=== PATIENT | female | born 1980 | race Caucasian/White ===

== ENCOUNTER 2021-01-12 23:28 | Observation (INO) | payer MEDICARE, MEDICAID ==
[2021-01-13 00:41] VITALS: BMI 23.3
[2021-01-13] MEDS ORDERED: Acetaminophen 650 MG Suppository PR PRN (04:29)
[2021-01-13] MEDS ORDERED: Ondansetron PF 4 MG/2 ML Vial IVP PRN (04:29)
[2021-01-13] MEDS ORDERED: Acetaminophen 325 MG TAB PO PRN (04:29)
[2021-01-13] MEDS: Morphine 4 MG/ML VIAL SLOW IVP PRN ×2 (04:34→09:11)
[2021-01-13] MEDS: Ondansetron ODT 4 MG TAB PO PRN ×2 (06:06→19:53)
[2021-01-13] MEDS: Piperacillin/Tazobactam 3.375 GM in Sodium Chloride 0.9% 100 ML IVPB SCH ×3 (06:06→21:32)
[2021-01-13 06:10] LABS: #Basophils 0.1 thou/uL (0.0-0.2); #Eosinphils 0.2 thou/uL (0.0-0.7); #Lymphocytes 2.4 thou/uL (1.20-3.40); #Monocytes 1.2 thou/uL (0.11-0.59); #Neutrophils 11.6 thou/uL (1.40-6.50); %Basophils 0.5 % (0.0-1.0); %Eosinophils 1.3 % (0.0-10.0); %Lymphocytes 15.5 % (21.0-51.0); %Monocytes 7.7 % (0.0-10.0); %Neutrophils 75.1 % (42.0-75.0); Hemoglobin 13.5 g/dL (12.0-16.0); Mean Corpuscular HGB CONC 32.7 g/dL (32.0-36.0); Mean Corpuscular Hemoglobin 32.4 pg (27.0-31.0); Mean Corpuscular Volume 99.1 fL (78.0-98.0); Mean Platelet Volume 7.6 fL (7.4-10.4); Platelet Count 349 thou/uL (130-400); RBC Distribution Width 12.7 % (11.5-14.5); Red Blood Cell (RBC) Count 4.17 mill/uL (4.20-5.40); White Blood Cell (WBC) Count 15.5 thou/uL (4.8-10.8)
[2021-01-13 06:31] LABS: ALT (SGPT) 21 U/L (8-55); AST (SGOT) 22 U/L (5-34); Albumin 3.2 g/dL (3.5-5.0); Alkaline Phosphatase 105 U/L (40-110); Anion Gap 15 mmol/L (10-20); BUN (Urea Nitrogen) 12 mg/dL (7.0-18.7); Bilirubin, Total 0.6 mg/dL (0.2-1.2); Calc. Creatinine Clearance 124 mL/min (70-130); Calcium 8.1 mg/dL (7.8-10.44); Carbon Dioxide 17 mmol/L (22-29); Chloride 111 mmol/L (98-107); Globulin 2.3 g/dL (2.4-3.5); Glucose 90 mg/dL (70-105); Potassium 3.7 mmol/L (3.5-5.1); Protein, Total 5.5 g/dL (6.0-8.3); Sodium 139 mmol/L (136-145)
[2021-01-13 06:32] LABS: Troponin I Less than 0.010 ng/mL (< 0.028)
[2021-01-13] MEDS: guaiFENesin ER 600 MG TAB PO SCH ×2 (09:09→19:53)
[2021-01-13] MEDS: traMADol HCl 50 MG TAB PO PRN ×2 (16:54→21:38)
[2021-01-13] MEDS ORDERED: Morphine 4 MG/ML VIAL SLOW IVP PRN ×2 (22:32→22:40)
[2021-01-14 05:26] LABS: #Basophils 0.1 thou/uL (0.0-0.2); #Eosinphils 0.5 thou/uL (0.0-0.7); #Lymphocytes 2.4 thou/uL (1.20-3.40); #Neutrophils 7.3 thou/uL (1.40-6.50); %Basophils 1.1 % (0.0-1.0); %Eosinophils 4.4 % (0.0-10.0); %Lymphocytes 21.1 % (21.0-51.0); %Monocytes 8.6 % (0.0-10.0); %Neutrophils 64.7 % (42.0-75.0); Hemoglobin 13.4 g/dL (12.0-16.0); Mean Corpuscular HGB CONC 34.2 g/dL (32.0-36.0); Mean Corpuscular Hemoglobin 33.5 pg (27.0-31.0); Mean Corpuscular Volume 97.8 fL (78.0-98.0); Mean Platelet Volume 7.3 fL (7.4-10.4); Platelet Count 371 thou/uL (130-400); RBC Distribution Width 12.5 % (11.5-14.5); Red Blood Cell (RBC) Count 4.01 mill/uL (4.20-5.40); White Blood Cell (WBC) Count 11.3 thou/uL (4.8-10.8)
[2021-01-14] MEDS: Piperacillin/Tazobactam 3.375 GM in Sodium Chloride 0.9% 100 ML IVPB SCH (05:26)
[2021-01-14] MEDS: traMADol HCl 50 MG TAB PO PRN (05:27)
[2021-01-14 05:55] LABS: Anion Gap 12 mmol/L (10-20); BUN (Urea Nitrogen) 8 mg/dL (7.0-18.7); Calc. Creatinine Clearance 139 mL/min (70-130); Calcium 8.3 mg/dL (7.8-10.44); Carbon Dioxide 22 mmol/L (22-29); Chloride 108 mmol/L (98-107); Glucose 92 mg/dL (70-105); Potassium 3.9 mmol/L (3.5-5.1); Sodium 138 mmol/L (136-145)
[2021-01-14] MEDS ORDERED: HYDROcodone/Acetaminophen 10/325 mg Tablet PO PRN (06:55)
[2021-01-14] MEDS ORDERED: PROTEASE PO SCH (09:00)
[2021-01-14] MEDS ORDERED: LIPASE PO SCH (09:00)
[2021-01-14] MEDS ORDERED: AMYLASE PO SCH (09:00)
[2021-01-14] MEDS: guaiFENesin ER 600 MG TAB PO SCH (09:41)
[2021-01-14 11:33] VITALS: BP 113/67; TEMP 98.1
[2021-01-14] MEDS ORDERED: traZODone HCl 50 MG TAB PO SCH (21:00)
[2021-01-15] MEDS ORDERED: Levothyroxine Sodium 125 MCG TAB PO SCH (06:00)
== END 2021-01-14 14:16 | disposition home or self-care (01) ==
LOC: 2SW 01-13 00:30
PROVIDERS: ADMIT Student in an Organized Health Care Education/Training Program; ATTEND Internal Medicine
DX: K52.9 Noninfective gastroenteritis and colitis, unspecified (principal); R00.0 Tachycardia, unspecified; E84.9 Cystic fibrosis, unspecified; J20.9 Acute bronchitis, unspecified; E03.9 Hypothyroidism, unspecified; K86.81 Exocrine pancreatic insufficiency; F17.210 Nicotine dependence, cigarettes, uncomplicated; R05.9 Cough, unspecified; Z79.899 Other long term (current) drug therapy; Z88.1 Allergy status to other antibiotic agents; Z93.1 Gastrostomy status
CPT/HCPCS: 71045; 80048; 80053; 83630; 84484; 85025 ×2; 87045; 87046; 87324; 87427 ×2; 87449 ×2; 87798 ×2; 96374; 96375; 96376 ×2; G0378 ×2; 36415; 87081; J2270; J2543; J3490; Q0162

== ENCOUNTER 2021-09-19 16:31 | Inpatient (IN) | payer MEDICARE, MEDICAID ==
[2021-09-19] MEDS ORDERED: Acetaminophen 650 MG Suppository PR PRN (18:06)
[2021-09-19] MEDS ORDERED: Acetaminophen 325 MG TAB PO PRN (18:06)
[2021-09-19] MEDS: Sodium Chloride 0.9% 1,000 ML IV SCH (18:27)
[2021-09-19] MEDS ORDERED: Morphine 2 MG/ML VIAL SLOW IVP SCH (18:30)
[2021-09-19] MEDS ORDERED: Piperacillin/Tazobactam 3.375 GM in Sodium Chloride 0.9% 100 ML IVPB SCH (18:30)
[2021-09-19 19:29] LABS: Anion Gap 11 mmol/L (10-20); BUN (Urea Nitrogen) 10 mg/dL (7.0-18.7); Calc. Creatinine Clearance 137 mL/min (70-130); Calcium 8.4 mg/dL (7.8-10.44); Carbon Dioxide 21 mmol/L (22-29); Chloride 112 mmol/L (98-107); Estimated GFR 120; Glucose 112 mg/dL (70-105); Potassium 4.1 mmol/L (3.5-5.1); Sodium 140 mmol/L (136-145)
[2021-09-19] MEDS: Piperacillin/Tazobactam 3.375 GM in Sodium Chloride 0.9% 100 ML IVPB SCH (21:07)
[2021-09-19] MEDS: Ketorolac Tromethamine 30 MG/ML VIAL IVP PRN (21:13)
[2021-09-19] MEDS: Ondansetron ODT 4 MG TAB PO PRN (21:13)
[2021-09-20] MEDS: Metoclopramide HCl 10 MG/2 ML VIAL IVP PRN ×3 (02:37→23:00)
[2021-09-20] MEDS: traMADol HCl 50 MG TAB PO PRN ×4 (02:37→23:01)
[2021-09-20] MEDS: Piperacillin/Tazobactam 3.375 GM in Sodium Chloride 0.9% 100 ML IVPB SCH ×3 (05:20→21:51)
[2021-09-20] MEDS: Ondansetron ODT 4 MG TAB PO PRN (05:34)
[2021-09-20 05:42] LABS: #Basophils 0.1 thou/uL (0.0-0.2); #Eosinphils 0.3 thou/uL (0.0-0.7); #Lymphocytes 2.5 thou/uL (1.20-3.40); #Monocytes 1.5 thou/uL (0.11-0.59); #Neutrophils 13.2 thou/uL (1.40-6.50); %Basophils 0.4 % (0.0-1.0); %Eosinophils 1.6 % (0.0-10.0); %Lymphocytes 14.2 % (21.0-51.0); %Monocytes 8.7 % (0.0-10.0); %Neutrophils 75.2 % (42.0-75.0); Hemoglobin 12.7 g/dL (12.0-16.0); Mean Corpuscular HGB CONC 32.7 g/dL (32.0-36.0); Mean Corpuscular Hemoglobin 31.7 pg (27.0-31.0); Mean Corpuscular Volume 96.8 fL (78.0-98.0); Platelet Count 333 thou/uL (130-400); Red Blood Cell (RBC) Count 4.01 mill/uL (4.20-5.40); White Blood Cell (WBC) Count 17.5 thou/uL (4.8-10.8)
[2021-09-20 06:02] LABS: Anion Gap 11 mmol/L (10-20); BUN (Urea Nitrogen) 12 mg/dL (7.0-18.7); Calc. Creatinine Clearance 123 mL/min (70-130); Calcium 8.2 mg/dL (7.8-10.44); Carbon Dioxide 21 mmol/L (22-29); Chloride 111 mmol/L (98-107); Estimated GFR 120; Glucose 106 mg/dL (70-105); Potassium 3.4 mmol/L (3.5-5.1); Sodium 140 mmol/L (136-145)
[2021-09-20] MEDS: Sodium Chloride 0.9% 1,000 ML IV SCH ×2 (08:26→20:13)
[2021-09-20] MEDS ORDERED: Potassium Chloride 20 MEQ TAB PO SCH ×2 (09:00→16:30)
[2021-09-20 11:56] VITALS: BMI 22.2
[2021-09-20] MEDS: Ondansetron PF 4 MG/2 ML Vial IVP PRN ×2 (12:29→19:55)
[2021-09-20] MEDS: Ketorolac Tromethamine 30 MG/ML VIAL IVP PRN ×2 (12:29→19:55)
[2021-09-20] MEDS ORDERED: diphenhydrAMINE 25 MG CAP PO PRN (16:17)
[2021-09-20] MEDS ORDERED: Morphine 2 MG/ML VIAL SLOW IVP PRN (17:40)
[2021-09-20] MEDS ORDERED: hydrALAZINE 20 MG/ML VIAL SLOW IVP PRN (17:44)
[2021-09-20] MEDS ORDERED: Simethicone Chewable 80 MG TAB PO SCH (19:57)
[2021-09-20] MEDS ORDERED: traZODone HCl 50 MG TAB PO PRN ×2 (21:40→21:41)
[2021-09-20] MEDS ORDERED: HYDROcodone/Acetaminophen 5/325 mg Tablet PO SCH (23:39)
[2021-09-21] MEDS: Piperacillin/Tazobactam 3.375 GM in Sodium Chloride 0.9% 100 ML IVPB SCH (05:16)
[2021-09-21 05:52] LABS: #Basophils 0.1 thou/uL (0.0-0.2); #Eosinphils 0.2 thou/uL (0.0-0.7); #Lymphocytes 2.4 thou/uL (1.20-3.40); #Neutrophils 8.9 thou/uL (1.40-6.50); %Basophils 0.8 % (0.0-1.0); %Eosinophils 1.5 % (0.0-10.0); %Lymphocytes 19.3 % (21.0-51.0); %Monocytes 7.9 % (0.0-10.0); %Neutrophils 70.5 % (42.0-75.0); Mean Corpuscular HGB CONC 31.9 g/dL (32.0-36.0); Mean Corpuscular Hemoglobin 31.3 pg (27.0-31.0); Mean Corpuscular Volume 98.2 fL (78.0-98.0); Mean Platelet Volume 8.3 fL (7.4-10.4); Platelet Count 330 thou/uL (130-400); Red Blood Cell (RBC) Count 3.84 mill/uL (4.20-5.40); White Blood Cell (WBC) Count 12.6 thou/uL (4.8-10.8)
[2021-09-21 06:36] LABS: Anion Gap 11 mmol/L (10-20); BUN (Urea Nitrogen) 10 mg/dL (7.0-18.7); Calc. Creatinine Clearance 130 mL/min (70-130); Calcium 8.1 mg/dL (7.8-10.44); Carbon Dioxide 22 mmol/L (22-29); Chloride 111 mmol/L (98-107); Estimated GFR 121; Glucose 107 mg/dL (70-105); Potassium 3.9 mmol/L (3.5-5.1); Sodium 140 mmol/L (136-145)
[2021-09-21] MEDS ORDERED: Simethicone Chewable 80 MG TAB PO SCH (10:45)
[2021-09-21 12:05] VITALS: BP 144/77; TEMP 98.3
[2021-09-21 12:22] LABS: Campy jejuni + coli by PCR Negative (Negative); STEC Shiga Toxin 1+2 Negative (Negative); Salmonella spp. by PCR Negative (Negative); Shigella spp + EIEC by PCR Negative (Negative)
[2021-09-21] MEDS: Sodium Chloride 0.9% 1,000 ML IV SCH (13:02)
== END 2021-09-21 12:55 | disposition home or self-care (01) | DRG 872 ==
LOC: T4-A 16:46 → OBSVTOIN 09-20 16:18
PROVIDERS: ADMIT Internal Medicine; ATTEND Internal Medicine
DX: A41.9 Sepsis, unspecified organism (principal); E84.9 Cystic fibrosis, unspecified; K51.00 Ulcerative (chronic) pancolitis without complications; F11.20 Opioid dependence, uncomplicated; Z20.822 Contact with and (suspected) exposure to COVID-19; F17.290 Nicotine dependence, other tobacco product, uncomplicated; E03.9 Hypothyroidism, unspecified; F17.210 Nicotine dependence, cigarettes, uncomplicated; F12.10 Cannabis abuse, uncomplicated; E87.6 Hypokalemia; Z88.1 Allergy status to other antibiotic agents; Z79.899 Other long term (current) drug therapy; Z79.52 Long term (current) use of systemic steroids; Z79.890 Hormone replacement therapy; Z98.51 Tubal ligation status; Z93.1 Gastrostomy status
CPT/HCPCS: 36415; 80048; 83630; 84443; 85025; 87324; 87449; 87505; 96365; 96366; 96375; G0378; J1885; J2270; J2405; J2543; J2765; J3490; J7050; Q0162